=== PATIENT | female | born 1970 | race Caucasian/White ===

== ENCOUNTER → 2017-02-07 | Outpatient (CLI) | payer OTHER ==
[~2017-02-07] MED LIST: DENOSUMAB 60 MG/ML 1 ML SYRINGE SQ ONE
[2017-02-07 15:26] VITALS: BP 126/87; PULSE 87; RESP 16; TEMP 98.7
== END | disposition home or self-care (01) ==
LOC: PROCWHC3 15:00
PROVIDERS: ATTEND Internal Medicine Hematology & Oncology
DX: M81.0 Age-related osteoporosis without current pathological fracture (principal)
CPT/HCPCS: 96372; J0897

== ENCOUNTER → 2017-08-15 | Outpatient (CLI) | payer OTHER ==
[2017-08-15 14:58] VITALS: BP 145/79; PULSE 75; RESP 16; TEMP 97.9
== END ==
LOC: PROCWHC3 14:48
PROVIDERS: ATTEND Internal Medicine Hematology & Oncology
DX: M81.0 Age-related osteoporosis without current pathological fracture (principal)
CPT/HCPCS: 96372; J0897

== ENCOUNTER → 2018-03-10 | Outpatient (CLI) | payer BC, OTHER ==
[~2018-03-10] MED LIST changes: -DENOSUMAB 60 MG/ML 1 ML SYRINGE SQ ONE; +SODIUM CHLORIDE 0.9% 500 ML in EMPTY BAG 1 BAG IV PRN; +ZOLEDRONIC ACID 5 MG in SODIUM CHLORIDE 0.9% 100 ML IV ONE
[2018-03-10 08:23] VITALS: RESP 16; TEMP 97.8
[2018-03-10 08:51] VITALS: BP 160/94; PULSE 58
== END ==
LOC: PROCWHC3 07:53
PROVIDERS: ATTEND Internal Medicine Hematology & Oncology
DX: M81.0 Age-related osteoporosis without current pathological fracture (principal); Z79.811 Long term (current) use of aromatase inhibitors
CPT/HCPCS: 96365; J3489

== ENCOUNTER → 2023-01-05 | Outpatient (CLI) | payer BC ==
[2023-01-05 17:07] LABS: ALT 42 U/L (8-44); AST 34 U/L (13-35); Chol/HDL Ratio 7.67 Ratio; LDL Cholesterol,Calculated 173.7 mg/dL (0.0-131.0)
== END | disposition home or self-care (01) ==
LOC: LABWHC1 08:53
PROVIDERS: ATTEND Internal Medicine Interventional Cardiology
DX: E78.00 Pure hypercholesterolemia, unspecified (principal)
CPT/HCPCS: 36415; 80061; 84450; 84460

== ENCOUNTER → 2023-10-10 | Outpatient (CLI) | payer BC ==
[2023-10-10 11:47] LABS: ALT 31 U/L (8-44); AST 23 U/L (13-35); Chol/HDL Ratio 5.35 Ratio; LDL Cholesterol,Calculated 96.5 mg/dL (0.0-131.0)
== END | disposition home or self-care (01) ==
LOC: LABWHC1 07:01
PROVIDERS: ATTEND Internal Medicine Interventional Cardiology
DX: E78.2 Mixed hyperlipidemia (principal)
CPT/HCPCS: 36415; 80061; 84450; 84460

== ENCOUNTER → 2023-10-14 | Outpatient (CLI) | payer BC ==
--- NOTE | 2023-10-14 07:55 | CTL ---
EXAMINATION TYPE: CT Low Dose Lung DATE OF EXAM ORDERED: 10/14/2023 HISTORY: Z87.891 nicotine dependence. Lung cancer screening. Quit smoking 2020, [address] DLP: 62.[address] CTDI: 1.9 mGy Automated exposure control for dose reduction was used. SCREENING VISIT: First screening visit COMPARISON: Chest radiograph 12/10/2018 TECHNIQUE: Low dose computed tomography scan was performed through the chest at 1 mm thick sections a nd reconstructed images in multiple planes at 1 mm and [address] DIAGNOSTIC QUALITY: Satisfactory FINDINGS: LUNG NODULES: Calcified granuloma within the right apex. No clinically significant pulmonary nodules. LUNGS: COPD: Severity: None Fibrosis: Severity: None Lymph nodes: None Other findings: None RIGHT PLEURAL SPACE: Effusion: None Calcification: None Thickening: None Pneumothorax: None LEFT PLEURAL SPACE: Effusion: None Calcification: None Thickening: None Pneumothorax: None HEART: Heart Size: Normal Coronary Calcification: Moderate Pericardial Effusion: None OTHER FINDINGS: Upper abdomen: None Bony thorax: None Supraclavicular region: None Other: None IMPRESSION: 1. No clinically significant pulmonary nodules. 2. Mild COPD changes. CT LUNG RAD AND CT CHEST RECOMMENDATION: Lung-Rad 1 Negative: Continue annual screening with LDCT in 12 months. S Modifier (other clinically significant findings): None
== END | disposition home or self-care (01) ==
LOC: RADCTMAIN 06:25
PROVIDERS: ATTEND Internal Medicine Hematology & Oncology
DX: Z12.2 Encounter for screening for malignant neoplasm of respiratory organs (principal); J44.9 Chronic obstructive pulmonary disease, unspecified; Z87.892 Personal history of anaphylaxis; Z87.891 Personal history of nicotine dependence
CPT/HCPCS: 71271

== ENCOUNTER → 2024-11-14 | Outpatient (CLI) | payer BC ==
[2024-11-14 12:59] LABS: ALT 62 U/L (8-44); AST 32 U/L (13-35); Chol/HDL Ratio 6.89 Ratio; LDL Cholesterol,Calculated 129.3 mg/dL (0.0-131.0)
== END | disposition home or self-care (01) ==
LOC: LABWHC1 08:01
PROVIDERS: ATTEND Internal Medicine Interventional Cardiology
DX: E78.2 Mixed hyperlipidemia (principal)
CPT/HCPCS: 36415; 80061; 84450; 84460

== ENCOUNTER → 2025-05-08 | Outpatient (CLI) | payer BC ==
--- NOTE | 2025-05-08 10:53 | CTL ---
EXAMINATION TYPE: CT Low Dose Lung DATE OF EXAM: 05/08/2025 7:53 AM COMPARISON: None. SCREENING VISIT: Initial CT DIAGNOSTIC QUALITY: Satisfactory CLINICAL INDICATION: Female, 55 years old with history of Z12.2 SCREENING LUNG CA Z87.891 NICOTINE DE PENDENC, Former smoker, quit 2019, was 1 pp x 36 hx COPD, Lung cancer screening, History of tobacco u se. TECHNIQUE: Low dose computed tomography scan was performed through the chest at 1 mm thick sections a nd reconstructed images in the coronal plane at 1 mm thick sections. Contrast used: mL of , (none if empty) Oral contrast used: (none if empty) CT DLP: 52.5 mGycm, Automated exposure control for dose reduction was used. CT CTDI: 1.4 mGy, Automated exposure control for dose reduction was used. FINDINGS: LUNG NODULES: None. LUNGS: COPD: Severity: None Fibrosis: Severity: None Lymph nodes: None Other findings: None RIGHT PLEURAL SPACE: Effusion: None Calcification: None Thickening: None Pneumothorax: None LEFT PLEURAL SPACE: Effusion: None Calcification: None Thickening: None Pneumothorax: None HEART: Other: Ascending thoracic aorta at the level the main pulmonary artery measures 3.2 cm. The main pul monary artery at the bifurcation measures 2.1 cm. Heart Size: Normal Coronary calcification: Moderate coronary artery calcifications present. Pericardial effusion: None OTHER FINDINGS: Upper abdomen: Normal Bony thorax: Normal Supraclavicular region: Normal. Right breast: There is a 4.0 x 6.0 cm oval masslike area additional evaluation of this area is recomm ended IMPRESSION: 1. No suspicious intrathoracic abnormalities. 2. Masslike area measuring 6 x 4 cm lateral right breast. Additional workup recommended. FOLLOW UP CT CHEST RECOMMENDATION: Follow-up low-dose CT chest one year CT LUNG RAD: Lung-Rad 1 Negative S modifier, additional finding within the right breast. [facility], , 05/08/2025 10:51 AM
== END | disposition home or self-care (01) ==
LOC: RADCTMAIN 07:16
PROVIDERS: ATTEND Internal Medicine Critical Care Medicine
DX: Z12.2 Encounter for screening for malignant neoplasm of respiratory organs (principal); Z87.891 Personal history of nicotine dependence; R91.8 Other nonspecific abnormal finding of lung field
CPT/HCPCS: 71271

== ENCOUNTER → 2025-05-25 | Outpatient (CLI) | payer BC | END | disposition home or self-care (01) | LOC: RADMAMWWP 09:17 | PROVIDERS: ATTEND Internal Medicine Hematology & Oncology | DX: Z53.9 Procedure and treatment not carried out, unspecified reason (principal) ==

== ENCOUNTER → 2025-05-26 | Outpatient (CLI) | payer BC ==
--- NOTE | 2025-05-26 09:18 | MM ---
Reason for Exam: Hx of breast cancer, conservation therapy. Last mammogram was performed 1 year(s) and 1 month(s) ago. Patient History: Menarche at age 9. First Full-Term at age 21. Left ovary removed at age 44. Right ovary removed at age 44. Hysterectomy at age 44. Postmenopausal. Patient has history of breast feeding. Breast cancer, left, age 44. Breast cancer, right, age 54. Previous chest radiation therapy at age 44. Currently using Unspecified Hormone, starting at age 54. 03/17/2024, Ultrasound-Guided Core Biopsy on the Right side. Mother had breast cancer at or over age 50. Mother had breast cancer at or over age 50. Prior Study Comparison: 01/15/2018 Bilateral Diagnostic Mammogram, [facility] . 01/22/2020 Bilateral Diagnostic Mammogram, [facility] . 01/23/2021 Bilateral Screening Mammogram, [facility] . 02/02/2022 Bilateral Screening Mammogram, [facility] . 02/05/2023 Bilateral Screening Mammogram, [facility] . 02/13/2024 Bilateral Screening Mammogram, [facility] . 02/26/2024 Right Diagnostic Mammogram, [facility] . Tissue Density: There are scattered areas of fibroglandular density. Findings: Analyzed By CAD. Bilateral lumpectomy changes with 3 of radiation. Mass seen on the right breast upper outer aspect not seen on prior. Further evaluation recommended the right upper outer quadrant for large possible seroma. No new suspicious masses, calcifications or distortions. Overall Assessment: Incomplete: need additional imaging evaluation, BI-RAD 0 Management: Diagnostic Breast Ultrasound of the right breast. Results were given to the patient verbally at the time of exam. Patient should continue monthly self-breast exams. A clinical breast exam by your physician is recommended on an annual basis. This exam should not preclude additional follow-up of suspicious palpable abnormalities. Note on Kallie scores and lifetime risk: 1. A Kallie score greater than 3% is considered moderate risk. If this is the case, consider specialist referral to assess eligibility for a risk reducing agent. 2. If overall lifetime risk for the development of breast cancer is 20% or higher, the patient may qualify for future screening with alternating mammogram and breast MRI. [facility], , 05/26/2025 9:15 AM. Electronically signed and approved by: Eder Bazzi DO
--- NOTE | 2025-05-26 09:51 | USB ---
Reason for Exam: Additional evaluation requested from prior study. Patient History: Menarche at age 9. First Full-Term at age 21. Left ovary removed at age 44. Right ovary removed at age 44. Hysterectomy at age 44. Postmenopausal. Patient has history of breast feeding. Breast cancer, left, age 44. Breast cancer, right, age 54. Previous chest radiation therapy at age 44. Currently using Unspecified Hormone, starting at age 54. 03/17/2024, Ultrasound-Guided Core Biopsy on the Right side. Mother had breast cancer at or over age 50. Mother had breast cancer at or over age 50. Technique: Method: Targeted. Prior Study Comparison: 02/26/2024 Right Diagnostic Mammogram, [facility] . 03/17/2024 Right Diagnostic Mammogram, [facility]. 04/16/2024 Right Diagnostic Mammogram, [facility]. Findings: The lateral section of the breast of the right breast and the axilla of the right breast were scanned. Technique utilized:US breast limited RT Image; Ultrasound imaging of: Area of concern, retroareolar region and axilla. Complex fluid collection in the right breast 9:00 in the area of scar measuring up to 5.1 x 2.9 x 3.6 cm. Correlate for hematoma/complex seroma versus less likely abscess. Overall Assessment: Benign, BI-RAD 2 Management: Screening Mammogram of both breasts in 1 year. Clinical correlation for patient's fluid collection in the right breast favored represent hematoma/seroma less likely abscess. A clinical breast exam by your physician is recommended on an annual basis and results should be correlated with mammographic findings. This exam should not preclude additional follow-up of suspicious palpable abnormalities. Results were given to the patient verbally at the time of exam. [facility], , 05/26/2025 9:49 AM. Electronically signed and approved by: Eder Bazzi DO
== END | disposition home or self-care (01) ==
LOC: RADMAMWWP 08:34
PROVIDERS: ATTEND Internal Medicine Hematology & Oncology
DX: C50.811 Malignant neoplasm of overlapping sites of right female breast (principal); R92.323 Mammographic fibroglandular density, bilateral breasts; Z78.0 Asymptomatic menopausal state; Z85.3 Personal history of malignant neoplasm of breast; Z80.3 Family history of malignant neoplasm of breast
CPT/HCPCS: 77062; 77066

== ENCOUNTER → 2025-06-03 | Outpatient (CLI) | payer BC ==
[2025-06-03 13:04] LABS: Cholesterol 184.00 mg/dL (0.00-200.00); HDL Cholesterol 33.10 mg/dL (40.00-60.00); Iron 55 UG/DL (50-170); LDL Cholesterol,Calculated 108.9 mg/dL (0.0-131.0); Total Iron Binding Capacity 399 UG/DL (228-460); Triglycerides 210.00 mg/dL (0.00-149.00); VLDL Calculation 42.00 mg/dL (5.00-40.00)
[2025-06-03 13:05] LABS: ALT 28 U/L (8-44); AST 27 U/L (13-35); Albumin 4.5 g/dL (3.8-4.9); Albumin/Globulin Ratio 1.73 Ratio (1.60-3.17); Alkaline Phosphatase 54 U/L (41-126); Anion Gap 11.10 mmol/L (4.00-12.00); BUN/Creat Ratio 27.00 Ratio (12.00-20.00); Blood Urea Nitrogen 21.6 mg/dL (9.0-27.0); Calcium 9.8 mg/dL (8.7-10.3); Carbon Dioxide 25.9 mmol/L (21.6-31.8); Chloride 102 mmol/L (96-109); Ferritin 229.0 ng/mL (10.0-291.0); Globulin 2.6 g/dL (1.6-3.3); Glucose 109 mg/dL (70-110); Potassium 4.3 mmol/L (3.5-5.5); Sodium 139 mmol/L (135-145); Total Protein 7.1 g/dL (6.2-8.2)
== END | disposition home or self-care (01) ==
LOC: LABWHC1 06:50
PROVIDERS: ATTEND Family Medicine
DX: I10 Essential (primary) hypertension (principal); E78.2 Mixed hyperlipidemia; E61.1 Iron deficiency; R73.01 Impaired fasting glucose
CPT/HCPCS: 36415; 80053; 80061; 82728; 83036; 83540; 83550